=== PATIENT | female | born 1990 ===

== ENCOUNTER 2018-10-11 18:24 | Emergency (ER) | payer MEDICAID, OTHER ==
[2018-10-11 18:24] VITALS: BMI 32.1
[2018-10-11 19:09] VITALS: BP 120/72; PULSE 100; RESP 18; TEMP 98.5; O2SAT 99
[2018-10-11] MEDS ORDERED: cefTRIAXone (Rocephin) 250 mg Inj IM STA (19:18)
--- NOTE | 2018-10-13 20:07 | C.PDOC ---
History Of Present Illness 28 year old female with no significant past medical history presents to the emergency department with sexual partner for STI testing and treatment. Patient states she has had intermittent vaginal spotting for the last one month with associated yellow white vaginal discharge. patient was evaluated at [facility] for similar complaints two weeks ago and had a negative work up was advised to follow up with OBGYN. On chart review, was not tested for STI at that time. Patient followed up with oBGYN this week and was prescribed metronidazole for bacterial vaginosis. As far as patient is aware she has not been tested for STI. Patient is requesting GC/Chlamydia testing and treatment today. Sexual partner is here to be treated as well. Unknown LMP as patient is irregular. Denies fevers, chills, abdominal pain, nausea, vomiting, diarrhea, vaginal itching, pelvic pain, back pain, neck pain, headache, dizziness, chest pain, shortness of breath, or any other Associated symptoms. Time Seen by Provider: 10/11/18 19:15 Chief Complaint (Nursing): Female Genitourinary Past Medical History Reviewed: Historical Data, Nursing Documentation, Vital Signs Vital Signs: Last Vital Signs Temp 98.5 F 10/11/18 19:05 Pulse 100 H 10/11/18 19:05 Resp 18 10/11/18 19:05 BP 120/72 10/11/18 19:05 Pulse Ox 99 10/11/18 19:05 FARSHAD Report Viewed: Yes - Medical History PMH: No Chronic Diseases - [facility] Procedures INJECT/INFUSE NEC (03/03/14) Family History: States: Unknown Family Hx - Social History Hx Tobacco Use: No Hx Alcohol Use: Yes Hx Substance Use: No - Immunization History Hx Tetanus Toxoid Vaccination: No Hx Influenza Vaccination: No Hx Pneumococcal Vaccination: No Review Of Systems Except As Marked, All Systems Reviewed And Found Negative. Constitutional: Negative for: Fever, Chills Cardiovascular: Negative for: Chest Pain, Palpitations Respiratory: Negative for: Cough, Shortness of Breath Gastrointestinal: Negative for: Nausea, Vomiting, Abdominal Pain, Diarrhea Genitourinary: Positive for: Vaginal Discharge. Negative for: Dysuria, Frequency, Vaginal Bleeding, Pelvic Pain, Rash Musculoskeletal: Negative for: Neck Pain, Back Pain Skin: Negative for: Rash Neurological: Negative for: Weakness, Numbness, Headache, Dizziness Physical Exam - Physical Exam Appears: Well, Non-toxic, No Acute Distress Skin: Normal Color, Warm, Dry Head: Atraumatic, Normacephalic Eye(s): bilateral: Normal Inspection, PERRL, EOMI Nose: Normal Throat: Normal Neck: Normal Cardiovascular: Rhythm Regular Respiratory: Normal Breath Sounds Gastrointestinal/Abdominal: Normal Exam, Soft, No Tenderness Back: No CVA Tenderness Extremity: Normal ROM, No Tenderness, Capillary Refill (<2s), No Deformity Extremity: Bilateral: Atraumatic, No Pedal Edema, Normal Color And Temperature, Normal ROM Pulses: Left Radial: Normal, Right Radial: Normal (Pulse on my exam 85 manually by radial pulse) Neurological/Psych: Oriented x3, Normal Speech, Normal Cognition, Normal Motor, Normal Sensation Gait: Steady ED Course And Treatment O2 Sat by Pulse Oximetry: 99 Medical Decision Making Medical Decision Making: Initial Plan: * Rocephin * Azithromycin * GC/Chlamydia Test Patient educated on safe sex practices and importance of routine STI testing. Patient's partner was seen in ED for treatment today as well. Advised to joss moran with OBGYN and primary doctor as scheduled. Informed that she will be called with results of STI results within 5 days, and that she may call the ED for results if she is not contacted. Plan of care discussed with patient. Strict instructions given regarding prescription use, importance of followup, and signs/symptoms to return to ER including abdominal pain, N/V, fevers, chills, or any other new/worsening symptoms. Pt verbalized understanding of discussion. Patient is A&Ox3, ambulating with steady gait, with vital signs stable for discharge. Disposition - Disposition Referrals: Akila Nunez DO [Staff Provider] - Disposition: HOME/ ROUTINE Disposition Time: 19:30 Condition: IMPROVED Additional Instructions: Followup with OBGYN as scheduled Followup with primary doctor as scheduled Take home medications as prescribed Return to ER with new/worsening symptoms Forms: General Discharge Instructions, [facility] (Guyanese) - Clinical Impression Clinical Impression: Encounter for screening for infections with predominantly sexual mode of transmission
== END 2018-10-11 20:20 | disposition home or self-care (01) ==
LOC: C.ER 18:24
DX: Z11.3 Encounter for screening for infections with a predominantly sexual mode of transmission (principal)
CPT/HCPCS: 87491; 87591; 96372; 99283; J0696